=== PATIENT | male | born 1955 | race Caucasian/White ===

== ENCOUNTER 2017-02-22 10:18 | Emergency (ER) | payer MEDICARE, OTHER | END 2017-02-22 18:05 | disposition home or self-care (01) | LOC: ER 10:18 | DX: R06.00 Dyspnea, unspecified (principal); R51 Headache; R11.0 Nausea; R53.81 Other malaise; Z79.899 Other long term (current) drug therapy; Z88.2 Allergy status to sulfonamides; Z88.8 Allergy status to other drugs, medicaments and biological substances | CPT/HCPCS: 36415; 70496; 87502; 96374; 96375; J1885; Q9967 ==

== ENCOUNTER 2017-04-06 19:55 | Emergency (ER) | payer MEDICARE, OTHER | END 2017-04-06 21:10 | disposition home or self-care (01) | LOC: ER 19:55 | DX: S61.237A Puncture wound without foreign body of left little finger without damage to nail, initial encounter (principal); Z79.899 Other long term (current) drug therapy; Z88.2 Allergy status to sulfonamides; Z88.8 Allergy status to other drugs, medicaments and biological substances; W45.8XXA Other foreign body or object entering through skin, initial encounter ==